=== PATIENT | female | born 1990 | race African-American/Black ===

== ENCOUNTER 2022-07-21 18:28 | Inpatient (IN) ==
[2022-07-21] MEDS: Propofol 10 mg/ml 100 ML BTL 1,000 MG/100 ML BTL IV SCH ×2 (18:30→22:30)
[2022-07-21] MEDS ORDERED: HYDROmorphone 1 MG/1 ML SYRINGE IV ONE (18:33)
[2022-07-21] MEDS ORDERED: fentaNYL INFUSION 50 mcg/mL VL 2,500 MCG/50 ML VIAL IV SCH (19:00)
[2022-07-21] MEDS ORDERED: Propofol 10 mg/ml 100 ML BTL 1,000 MG/100 ML BTL IV SCH (19:00)
[2022-07-21 19:12] LABS: ABS Basophils 0.1 10^3/ul (0-0.2); ABS Eosinophils 0.1 10^3/ul (0-0.6); ABS Lymphocytes 2.2 10^3/ul (1.0-4.8); ABS Monocytes 0.8 10^3/ul (0-0.8); ABS Neutrophils 4.5 10^3/ul (1.5-7.7); Hematocrit 34 % (35-47); Hematocrit for Retic CNT 34 % (35-47); Hemoglobin 10.9 g/dL (12.0-16.0); Lymphocyte % 28.4 %; Mean Corpuscular HGB Conc 32 g/dL (31-36); Mean Corpuscular Hemoglobin 26 pg (27-31); Mean Corpuscular Volume 80 fL (80-97); Nucleated Red Blood Cells % 0.1; PCO2 Arterial 33 mmHg (35-45); PO2 Arterial 155 mmHg (80-100); Platelet Count 538 10^3/uL (150-450); RBC Retic Count 4.26 10^6/uL (3.70-4.87); Red Blood Count 4.26 10^6 /uL (3.70-4.87); Red Cell Distribution Width 21 % (10-15); White Blood Count 7.6 10^3/uL (3.5-10.8)
[2022-07-21 19:17] LABS: Corrected Retic Count 0.9 % (0.5-1.5); Immature Retic Fraction 0.38
[2022-07-21 19:50] LABS: Albumin/Globulin Ratio 1.7 (1-3); Calcium 8.6 mg/dL (8.6-10.3); Creatinine, Serum 0.64 mg/dL (0.51-0.95); Globulin 2.3 g/dL (2-4); Potassium 4.3 mmol/L (3.5-5.0); Total Bilirubin 0.3 mg/dL (0.2-1.0); Total Protein 6.3 g/dL (6.4-8.9); eGFR CKD-EPI 121.1 (>60)
[2022-07-21] MEDS ORDERED: Enoxaparin 100 MG/ML SYR SUBCUT SCH (22:00)
[2022-07-21] MEDS: Lactated Ringers 1000 ml BAG 1,000 ML IV SCH (22:30)
[2022-07-21] MEDS: Chlorhexidine MOUTHWASH 0.12% 15 ML UDC SWISH SPIT SCH (23:00)
[2022-07-22] MEDS ORDERED: Midazolam 2 mg/2 ml VIAL 1 mg/ml 2 ml VIAL (2 mg) IV SLOW PU ONE ×2 (00:59→12:32)
[2022-07-22] MEDS ORDERED: Haloperidol 5 mg/ml SDV IV/IM 5 MG/ML AMP IV SLOW PU ONE (00:59)
[2022-07-22] MEDS: Chlorhexidine MOUTHWASH 0.12% 15 ML UDC SWISH SPIT SCH ×5 (01:44→18:34)
[2022-07-22] MEDS: Propofol 10 mg/ml 100 ML BTL 1,000 MG/100 ML BTL IV SCH ×5 (03:05→17:45)
[2022-07-22] MEDS ORDERED: cefTRIAXone 1 gm/50 mL D5W 1 GM/50 ML BAG IV SCH (03:45)
[2022-07-22] MEDS ORDERED: Azithromycin 500 mg/250 ml NS 500 MG/250 ML BAG IVPB SCH (04:00)
[2022-07-22] MEDS: Lactated Ringers 1000 ml BAG 1,000 ML IV SCH (05:48)
[2022-07-22 06:21] LABS: ABS Eosinophils 0.1 10^3/ul (0-0.6); ABS Lymphocytes 2.3 10^3/ul (1.0-4.8); ABS Monocytes 0.9 10^3/ul (0-0.8); ABS Neutrophils 3.9 10^3/ul (1.5-7.7); Eosinophil % 1.7 %; Hematocrit 32 % (35-47); Hemoglobin 10.2 g/dL (12.0-16.0); Lymphocyte % 31.7 %; Mean Corpuscular HGB Conc 32 g/dL (31-36); Mean Corpuscular Hemoglobin 26 pg (27-31); Mean Corpuscular Volume 80 fL (80-97); Mean Platelet Volume 8.3 fL (7.4-10.4); Nucleated Red Blood Cells % 0.1; Platelet Count 496 10^3/uL (150-450); Red Blood Count 3.98 10^6 /uL (3.70-4.87); Red Cell Distribution Width 21 % (10-15); White Blood Count 7.2 10^3/uL (3.5-10.8)
[2022-07-22 06:55] LABS: Blood Urea Nitrogen 12 mg/dL (6-24); CO2 Carbon Dioxide 16 mmol/L (22-32); Calcium 6.7 mg/dL (8.6-10.3); Creatinine, Serum 0.54 mg/dL (0.51-0.95); Glucose 60 mg/dL (70-100); Sodium 139 mmol/L (135-145); eGFR CKD-EPI 126.2 (>60)
[2022-07-22 06:57] LABS: Anion Gap 8 mmol/L (2-11); Chloride 115 mmol/L (101-111)
[2022-07-22] MEDS ORDERED: Dextrose 50% Syringe 50 ml 25 GM/50 ML SYRINGE IV PUSH PRN (08:10)
[2022-07-22] MEDS ORDERED: Dextrose 50% Syringe 50 ml 25 GM/50 ML SYRINGE ONE (08:10)
[2022-07-22] MEDS ORDERED: Pantoprazole VIAL 40 MG VIAL IV SCH (09:00)
[2022-07-22 09:14] LABS: Magnesium 1.9 mg/dL (1.9-2.7); Potassium Redraw 3.9 mmol/L (3.5-5.0)
[2022-07-22] MEDS ORDERED: Albuterol/Ipratropium NEB.SOL (2.5/0.5 MG) 3 ML NEB.SOLN ONE (09:16)
[2022-07-22] MEDS ORDERED: Albuterol/Ipratropium NEB.SOL (2.5/0.5 MG) 3 ML NEB.SOLN INH PRN (09:16)
[2022-07-22] MEDS ORDERED: EPINEPHrine,Rac 2.25% NEB.SOL 0.5 ML ONE (09:22)
[2022-07-22] MEDS ORDERED: Succinylcholine 200 mg VIAL 20 mg/ml 10 ml VIAL (200 mg) ONE (09:23)
[2022-07-22] MEDS ORDERED: Rocuronium 50 mg VIAL 10 mg/ml 5 ml VIAL (50 mg) ONE (09:25)
[2022-07-22] MEDS: D5LR 1000 ml BAG 1,000 ML IV SCH ×2 (10:12→18:36)
[2022-07-22] MEDS ORDERED: Magnesium Sulfate IV 1GM/100ML 1 GM/100 ML BAG IV ONE (11:36)
[2022-07-22] MEDS ORDERED: Potassium Chloride LIQUID 20 MEQ/15 ML LIQUID PO ONE (11:37)
[2022-07-22] MEDS ORDERED: Midazolam 2 mg/2 ml VIAL 1 mg/ml 2 ml VIAL (2 mg) ONE (12:38)
[2022-07-22] MEDS: fentaNYL INFUSION 50 mcg/mL VL 2,500 MCG/50 ML VIAL IV SCH ×2 (12:58→17:46)
[2022-07-22] MEDS ORDERED: NS 0.9% 500 ml BAG 500 ML IV ONE (14:11)
[2022-07-22] MEDS ORDERED: Heparin DRIP 25,000 UNITS BAG 25,000 UNITS/500 ML BAG IV SCH (14:45)
[2022-07-22] MEDS ORDERED: Lorazepam PYXIS KEY ONE (15:12)
[2022-07-22] MEDS ORDERED: Lorazepam PYXIS KEY PRN ×2 (15:12→17:44)
[2022-07-22] MEDS ORDERED: LORazepam 2 mg VIAL 1 ml IV PUSH ONE ×2 (15:12→17:44)
[2022-07-22] MEDS ORDERED: LORazepam 2 mg VIAL 1 ml ONE ×2 (15:13→17:45)
[2022-07-22] MEDS ORDERED: Heparin 5000 UNITS/ML 1 mL VIAL IV SCH (16:00)
== END 2022-07-22 18:30 | disposition short-term general hospital (02) | DRG 811 ==
LOC: ED 18:28 → EDHOLD 18:41 → ICU 07-22 03:13
PROVIDERS: ADMIT Internal Medicine; ATTEND Internal Medicine